=== PATIENT | male | born 1960 | race Asian ===

== ENCOUNTER 2017-10-01 09:50 | Day surgery (SDC) | payer OTHER ==
[~2017-10-01] VITALS: Ht 170.2 cm; Wt 83.9 kg
[2017-10-01] VITALS (9 sets, daily range): BP systolic 136–167; BP diastolic 81–108
[2017-10-01] MEDS ORDERED: BSS 500ml btl ONE (10:02)
[2017-10-01] MEDS ORDERED: Lidocaine 1% MPF 10mg/ml 5ml ONE ×2 (10:02→12:45)
[2017-10-01] MEDS ORDERED: Povidone-Iodine 5% opth solution ONE (10:03)
[2017-10-01] MEDS ORDERED: BSS 15ml BTL ONE (10:03)
[2017-10-01] MEDS ORDERED: Acetylcholine Injection (OR) ONE (10:03)
[2017-10-01] MEDS ORDERED: EPINEPHrine 1mg/1ml Amp ONE (10:03)
[2017-10-01] MEDS ORDERED: Goniosol 2.5% Opth Soln - 15ml ONE (10:03)
[2017-10-01] MEDS ORDERED: Healon Duet Dual Pack ONE (10:21)
[2017-10-01] MEDS ORDERED: Sodium Hyaluronate 10 mg/ml 0.85ml ONE (10:46)
[2017-10-01] MEDS ORDERED: Maxitrol Opth Oint 3.5gm ONE (10:46)
[2017-10-01] MEDS: Ciprofloxacin Opth Soln 2.5ml RIGHT EYE SCH ×3 (11:24→11:51)
[2017-10-01] MEDS: Flurbiprofen 0.03% Opth Sol 2.5ml RIGHT EYE SCH ×3 (11:24→11:53)
[2017-10-01] MEDS: Cyclopentolate 1% Opth Sol 2ml RIGHT EYE SCH ×3 (11:24→11:51)
[2017-10-01] MEDS: Phenylephrine 2.5% Op 2ml Soln RIGHT EYE SCH ×3 (11:24→11:52)
[2017-10-01] MEDS: Tropicamide 1% Opth 15ml Soln RIGHT EYE SCH ×3 (11:24→11:51)
[2017-10-01] MEDS ORDERED: TIMOPTIC 0.5%1 DRO1 BOTH EYES (11:35)
[2017-10-01] MEDS ORDERED: BRIMONIDINE TART5 ML BOTH EYES (11:35)
[2017-10-01] MEDS ORDERED: CLARITIN10 MG ORAL (11:35)
--- NOTE | 2017-10-01 12:10 | Anethesia Preoperative Eval ---
Anesthesia Pre-op PMH/ROS General Date of Evaluation: Oct 01, 2017 Anesthesiologist: Huber ASA Score: ASA 2 Mallampati Score Class I : Soft palate, uvula, fauces, pillars visible Class II: Soft palate, uvula, fauces visible Class III: Soft palate, base of uvula visible Class IV: Only hard plate visible Mallampati Classification: Class II Surgeon: Main Diagnosis: Right cataract Surgical Procedure: Right cataract extraction with IOL Anesthesia History: none Family History: no anesthesia problems Allergies: Coded Allergies: No Known Allergies (Verified Allergy, Mild, 12/10/10) Medications: see eMAR Past Medical History Cardiovascular: Reports: HTN, Denies: CAD, ME, valve dz, arrhythmia, other Pulmonary: Denies: asthma, COPD, JOVITA, other Gastrointestinal/Genitourinary: Denies: GERD, CRI, ESRD, other Neurologic/Psychiatric: Denies: dementia, CVA, depression/anxiety, TIA, other Endocrine: Denies: DM, hypothyroidism, steroids, other HEENT: Denies: cataract (L), cataract (R), glaucoma, [place] (L), [place] (R), other Hematology/Immune: Denies: anemia, DVT, bleeding disorder, other Musculoskeletal/Integumentary: Denies: OA, RA, DJD, DDD, edema, other PSxH Narrative: Right trabeculectomy Anesthesia Pre-op Phys. Exam Physician Exam Last Vital Signs Date Time Temp Pulse Resp B/P (MAP) Pulse Ox O2 Delivery O2 Flow Rate FiO2 10/01/17 12:02 97.7 75 20 136/83 98 Room Air 97.7 Constitutional: NAD Cardiovascular: RRR Respiratory: CTA Airway Exam Mallampati Score: Class II MO: full ROM: full Teeth: intact Anesthesia Pre-op A/P Labs see chart Studies Pre-op Studies: EKG - sr Risk Assessment & Plan Assessment: ASA II Plan: MAC Status Change Before Surgery: No Pre-Antibiotics Drug: N/A ROBERT LOUIE M.D. Oct 01, 2017 12:10
[2017-10-01 12:19] LABS: BASOPHILS % (AUTO) 1.1 % (0.0-2.0); EOSINOPHILS % (AUTO) 1.4 % (0.0-3.0); HEMATOCRIT 46.7 % (42.0-52.0); LYMPHOCYTES % (AUTO) 28.7 % (20.0-45.0); MEAN CORPUSCULAR VOLUME 90 FL (80-99); MONOCYTES % (AUTO) 7.9 % (1.0-10.0); NEUTROPHILS % (AUTO) 60.9 % (45.0-75.0); PLATELET COUNT 216 K/UL (150-450); RED BLOOD COUNT 5.18 M/UL (4.70-6.10); RED CELL DISTRIBUTION WIDTH 11.5 % (11.6-14.8)
--- NOTE | 2017-10-01 12:20 | Pre-Procedure Note/Attestation ---
Pre-Procedure Note/Attestation Complete Prior to Procedure Planned Procedure: right Procedure Narrative: Phaco extraction with IOL right eye Indications for Procedure Pre-Operative Diagnosis: Cataract OD Attestation I attest that I discussed the nature of the procedure; its benefits; risks and complications; and alternatives (and the risks and benefits of such alternatives ), prior to the procedure, with the patient (or the patient's legal leasing representative). I attest that, if there was a reasonable possibility of needing a blood transfusion, the patient (or the patient's legal leasing representative) was given the [facility] standardized written summary, pursuant to the Dino Keegan Blood Safety Act ([place] Health and Safety Code # 1645, as amended). I attest that I re-evaluated the patient just prior to the surgery and that there has been no change in the patient's H&P, except as documented below: MASOUD HOLLIS DO Oct 01, 2017 12:19
[2017-10-01] MEDS ORDERED: LR 1000ml 1,000 ML IVLG SCH (12:35)
[2017-10-01] MEDS ORDERED: NS Irrig 1000ml ONE (12:45)
[2017-10-01] MEDS ORDERED: Sterile Water Irrig 1000ml IRRIG ONE (12:45)
[2017-10-01] MEDS ORDERED: DiphenhydrAMINE 50mg/ml Inj IVP PRN (12:45)
[2017-10-01] MEDS ORDERED: LR 1000ml ONE (12:45)
[2017-10-01] MEDS ORDERED: fentaNYL 100 mcg/2 mL IV ONE (12:45)
[2017-10-01] MEDS ORDERED: Midazolam 2mg/2ml Inj ONE (12:45)
--- NOTE | 2017-10-01 13:10 | Immediate Post-Op Evaluation ---
Immediate Post-Op Evalulation Immediate Post-Op Evalulation Procedure: Right cataract extraction with IOL Date of Evaluation: Oct 01, 2017 Time of Evaluation: 13:38 IV Fluids: 600 Blood Products: 0 Estimated Blood Loss: 0 Urinary Output: 0 Blood Pressure Systolic: 147 Blood Pressure Diastolic: 81 Pulse Rate: 84 Respiratory Rate: 16 O2 Sat by Pulse Oximetry: 100 Temperature (Fahrenheit): 97.1 Pain Score (1-10): 0 Nausea: No Vomiting: No Complications 0 Patient Status: awake, reacts, patent, none Hydration Status: adequate Drug: N/A ROBERT LOUIE M.D. Oct 01, 2017 13:10
--- NOTE | 2017-10-01 13:11 | 48 Hour Post Anesthesia Eval ---
Post Anesthesia Evaluation Procedure: Right cataract extraction with IOL Date of Evaluation: Oct 01, 2017 Airway: patent Nausea: No Vomiting: No Pain Intensity: 0 Hydration Status: adequate Cardiopulmonary Status: at baseline Mental Status/LOC: patient returned to baseline Post-Anesthesia Complications: 0 Follow-up care needed: ready to discharge ROBERT LOUIE M.D. Oct 01, 2017 13:11
[2017-10-01] MEDS ORDERED: Tetracaine 0.5% Opth 4ml Soln ONE (13:21)
--- NOTE | 2017-10-01 13:58 | Brief Operative Note ---
Immediate Post Operative Note Operative Note Chief Complaint: Blurred vision getting worse right eye Pre-op Diagnosis: Cataract OD Procedure: Phaco extraction with IOL right eye Post-op Diagnosis: same as pre-op Findings: consistent w/pre-op dx studies Surgeon: Dr Quach Anesthesia: MAC Specimen: none Complications: none Condition: stable Fluids: No Estimated Blood Loss: none Drains: none Implant(s) used?: No MASOUD QUACH DO Oct 01, 2017 13:58
--- NOTE | 2017-10-01 14:00 | Discharge Instructions ---
Discharge Instructions Discharge Instructions Follow up with: Dr Quach Diet: regular Resume Normal Activity?: No Activity: light activity Special Instructions See Dr Quach day after surgery in office For Surgical Patients Dressing Care: keep dry and clean May shower: No Contact your physician for: yellowish discharge in the op. site For Congestive Heart Failure Reminder Report to your physician any weight gain of 5 pounds or more in one week. MASOUD QUACH DO Oct 01, 2017 14:00
--- NOTE | 2017-10-01 14:02 | General Surgery Progress Note ---
General Surgery-Progress Note Subjective Day of Surgery: 10/01/17 Reason for Consult Blurred vision getting worse in right eye Procedure Performed Phaco extraction with IOL right eye Chief Complaint: Blurred vision OD Objective Last 24 Hour Vital Signs Date Time Temp Pulse Resp B/P (MAP) Pulse Ox O2 Delivery O2 Flow Rate FiO2 10/01/17 13:46 167/116 10/01/17 13:34 206.8 84 16 100 10/01/17 12:02 97.7 75 20 136/83 98 Room Air 97.7 Dressing: dry Wound: clean Drains: none Laboratory Tests Test 10/01/17 11:30 White Blood Count 6.0 K/UL (4.8-10.8) Red Blood Count 5.18 M/UL (4.70-6.10) Hemoglobin 16.0 G/DL (14.2-18.0) Hematocrit 46.7 % (42.0-52.0) Mean Corpuscular Volume 90 FL (80-99) Mean Corpuscular Hemoglobin 30.9 PG (27.0-31.0) Mean Corpuscular Hemoglobin Concent 34.3 G/DL (32.0-36.0) Red Cell Distribution Width 11.5 % (11.6-14.8) L Platelet Count 216 K/UL (150-450) Mean Platelet Volume 8.1 FL (6.5-10.1) Neutrophils (%) (Auto) 60.9 % (45.0-75.0) Lymphocytes (%) (Auto) 28.7 % (20.0-45.0) Monocytes (%) (Auto) 7.9 % (1.0-10.0) Eosinophils (%) (Auto) 1.4 % (0.0-3.0) Basophils (%) (Auto) 1.1 % (0.0-2.0) MASOUD HOLLIS DO Oct 01, 2017 14:02
--- NOTE | 2017-10-01 23:45 | Operative Note - Dictated ---
DATE OF OPERATION: 10/01/2017 PREOPERATIVE DIAGNOSIS: Age-related nuclear sclerotic cataract of the right eye. POSTOPERATIVE DIAGNOSIS: Age-related nuclear sclerotic cataract of the right eye. SURGERY: Phacoemulsification with intraocular lens placement in the right eye. ANESTHESIA: Monitored anesthesia care. COMPLICATIONS: None. SPECIMENS: None. BLEEDING: None. DESCRIPTION OF PROCEDURE: The patient was brought to the operating room and prepped and draped in the usual sterile manner for right eye procedure. With the aid of an operating microscope, a lid speculum was placed into the right eye. A paracentesis was created temporally. Preservative-free lidocaine was irrigated into the anterior chamber followed by viscoelastic material. A 2.8 mm clear corneal incision was made temporally. A circular tear capsulotomy was performed. Hydrodissection and hydrodelineation of the lens was performed. The phacoemulsification handpiece was introduced into the eye and the nuclear material removed in a divide and conquer method. The remaining cortical material was removed with the I and A handpiece. The posterior capsule was polished. The bag was refilled with viscoelastic material and SN60WF 14.0 diopter lens was placed into the bag and rotated into position. The remained viscoelastic material was removed with the I and A handpiece. The wound was hydrated with balanced salt solution and found to be self-sealing. The lid speculum was removed. A patch and shield placed over the eye and the patient delivered to the recovery room in good condition. Antoine Quach D.O. DR: LEILANI JOB#: [id number] CC:
--- NOTE | 2017-10-05 15:43 | Cardiology Report ---
APPROVED REPORT EKG Measurement Heart [id number] Normal sinus rhythm Inferior infarct, age undetermined Abnormal ECG
== END 2017-10-01 14:50 | disposition home or self-care (01) ==
LOC: SUR 09:50
DX: H25.11 Age-related nuclear cataract, right eye (principal); I10 Essential (primary) hypertension
CPT/HCPCS: 36415; 66984; 85025; 93005; J0171; J0360; J1200; J2250; J3010; J7120; V2632; 94003; 94150